=== PATIENT | female | born 1960 | race Caucasian/White ===

== ENCOUNTER 2016-07-13 22:14 | Inpatient (IN) | payer BC, OTHER ==
[2016-07-13] MEDS ORDERED: Aspirin Low Dose CHEW TAB* 81 MG PO ONE (22:32)
--- NOTE | 2016-07-13 22:51 | ED ---
Zoe Cummings Erika, scribed for Teja Cehn MD on 07/13/16 at 2231 . Shortness of Breath - HPI Summary HPI Summary: Patient is a 56-year-old female presenting to the ED with a CC of SOB. Patient reports that 2 weeks ago, she developed sudden-onset SOB while on a walk. At that time, she also noted chest pressure, which she believed to be due to indigestion. Since then, pt has had increased SOB with exertion - pt has to take breaks while on walks, which she has never had to do before. For the past 2 days, patient has also noticed a constriction feeling at the base of her throat with these episodes, and states SOB has been worsening. Pt called her [id number], a manager of training and development, who recommended she come to the ED tonight. Pt reports she was unable to have an appointment with her PCP until 07/15/2016. Hx elevated cholesterol without medication. Denies Hx HTN, diabetes. FHx NC. Patient lives with her , and does not smoke. - History of Current Complaint Chief Complaint: EDShortnessOfBreath Time Seen by Provider: 07/13/16 22:21 Hx Obtained From: Patient, Family/Public Health Sanitarian Technician - Onset/Duration: Sudden Onset, Lasting Weeks, Still Present Timing: Intermittent Episodes Lasting: - minutes Current Severity: None Dyspnea At: Exertion - Allergy/Home Medications Allergies/Adverse Reactions: Allergies Allergy/AdvReac Type Severity Reaction Status Date / Time No Known Allergies Allergy Verified 07/14/15 16:11 PMH/Surg Hx/FS Hx/Imm Hx Endocrine/Hematology History: Denies: Hx Diabetes Cardiovascular History: Reports: Hx Hypercholesterolemia - without medication Denies: Hx Hypertension Musculoskeletal History: Reports: Hx Osteoporosis - LEFT WRIST, Other Musculoskeletal History - chronic muscular pain left side of neck, shoulder and upper back Denies: Hx Rheumatoid Arthritis Sensory History: Reports: Hx Contacts or Glasses Opthamlomology History: Reports: Hx Contacts or Glasses Infectious Disease History: No Infectious Disease History: Reports: Hx Shingles Denies: History Other Infectious Disease, Traveled Outside the [place] in Last 30 Days - Family History Known Family History: Positive: Cardiac Disease - Social History Occupation: Employed Full-time Lives: With Family Alcohol Use: None Substance Use Type: Reports: None Hx Tobacco Use: Yes Smoking Status (MU): Former Smoker Type: Cigarettes Have You Smoked in the Last Year: No Review of Systems ENT: Other - constricting feeling in throat Positive: Shortness Of Breath All Other Systems Reviewed And Are Negative: Yes Physical Exam Triage Information Reviewed: Yes Vital Signs On Initial Exam: Initial Vitals Temp Pulse Resp BP Pulse Ox 97.9 F 72 16 125/71 98 07/13/16 22:15 07/13/16 22:15 07/13/16 22:15 07/13/16 22:15 07/13/16 22:15 Vital Signs Reviewed: Yes Appearance: Positive: No Pain Distress, Thin Skin: Positive: Warm Eyes: Positive: EOMI, ALEXSANDER ENT: Positive: Hearing grossly normal Neck: Positive: Supple Respiratory/Lung Sounds: Positive: Clear to Auscultation, Breath Sounds Present Cardiovascular: Positive: RRR. Negative: Murmur Abdomen Description: Positive: Nontender, Soft Musculoskeletal: Positive: Strength/ROM Intact. Negative: Edema Left, Edema Right Neurological: Positive: Sensory/Motor Intact, Alert, Oriented to Person Place, Time Psychiatric: Positive: Affect/Mood Appropriate Diagnostics - Vital Signs Vital Signs Temp Pulse Resp BP Pulse Ox 07/13/16 22:15 97.9 F 72 16 125/71 98 - Laboratory Result Diagrams: 07/14/16 04:16 07/14/16 04:16 Lab Statement: Any lab studies that have been ordered have been reviewed, and results considered in the medical decision making process. - Radiology CXR Xray Interpretation: No Acute Changes Radiology Interpretation Completed By: ED Physician - EKG 22:17 Cardiac Rate: NL - at 64 bpm EKG Rhythm: Sinus Rhythm EKG Interpretation: Non-specific T abnormalities EKG Comparison: Other - No prior EKG available for comparison Re-Evaluation - Re-Evaluation First Eval Re-Evaluation Time: 23:53 Comment: Discussed lab work, EKG, and CXR results. Discussed need for admission. Patient agrees with plan Course/Dx - Course Assessment/Plan: A 56 y/o F presents to the ED with a CC of SOB. Patient reported an episode of chest pressure 2 weeks ago, after which the SOB episodes began. FHx is significant for NC. EKG shows NSR with non-specific T abnormalities, and no prior for comparison. CXR shows no acute cardiopulmonary disease. Troponin is 0.03. Patient is admitted to Dr. Valentino for further work up and management. - Diagnoses Provider Diagnoses: ACS (acute coronary syndrome) - Physician Notifications Discussed Care of Patient With: Dr. Valentino (hospitalist) at 22:35 - agrees to admit Instructed by Provider To: Admit As Inpatient Discharge - Discharge Plan Condition: Stable Disposition: ADMITTED TO [facility] The documentation as recorded by the Zoe cannon Erika accurately reflects the service I personally performed and the decisions made by , Teja Chen MD.
[2016-07-13 23:11] LABS: Hematocrit 39 % (35-47); Hemoglobin 13.5 g/dl (12.0-16.0); Mean Corpuscular HGB Conc 35 g/dl (31-36); Mean Corpuscular Hemoglobin 30 pg (27-31); Mean Corpuscular Volume 86 fL (80-97); Mean Platelet Volume 8 um3 (7.4-10.4); Red Blood Count 4.56 10^6/ul (4.0-5.4); Red Cell Distribution Width 13 % (10.5-15); White Blood Count 5.9 10^3/ul (3.5-10.8)
[2016-07-13 23:16] LABS: BUN/Creatinine Ratio 22.1 (8-20); Calcium 9.1 mg/dL (8.6-10.3); EGFR African American 87.2 (>60); EGFR Non-African American 67.8 (>60); Globulin 2.9 g/dL (2-4); Total Bilirubin 0.5 mg/dL (0.2-1.0); Total Protein 6.9 g/dL (6.4-8.9)
[2016-07-13 23:18] LABS: Troponin I 0.03 ng/mL (<0.04)
[2016-07-13 23:19] LABS: Potassium 3.7 mmol/L (3.5-5.0)
--- NOTE | 2016-07-14 03:24 | HP ---
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 It was made worse with exertion and associated with a tight sensation in the throat , but no SOB, nausea, palpitations, or light-headedness. Since then the epigastric discomfort has subsided, but she continues to get throat tightness and now SOB with exertion until last PM when it came on at rest prompting her to call her son who is about to graduate medical school in [place]. He, his roommate, and another relative who is a agricultural commodities inspector all advised her to come to the ED for evaluation to which she finally agreed. Work up is notable for stable vitals & normal labs. ECG is concerning for Q- waves in II/III/AVF. PMedHx anxiety insomnia Allergies No Known Allergies Allergy (Verified 07/14/15 16:11) Ambulatory Orders Prozac* 40 mg PO DAILY 01/22/13 Vitamin D 2,000 i.u. PO DAILY 01/22/13 traZODone TAB* 50 mg PO BEDTIME PRN 01/22/13 Ibuprofen 200 mg PO DAILY PRN 08/11/13 PSurgHx denies SocHx: former smoker quit ~30years ago, no alcohol or recreational drugs; , lives with her ; retired nurse from [employer]; full code status FamHx: positive for HTN, HLD, CAD ROS: as above, otherwise reviewed and all were negative Constitutional: NAD, normally developed, well-nourished white female vitals: Vital Signs Temp 36.6 C 07/13/16 22:35 Pulse 75 07/14/16 04:00 Resp 24 07/14/16 04:00 BP 94/58 07/14/16 04:00 Pulse Ox 94 07/14/16 04:00 Intake & Output 07/13/16 07/13/16 07/14/16 11:59 23:59 11:59 Weight 65.771 kg HEENM: atraumatic; sclera/conjunctiva: non-icteric/clear; hearing: clinically intact; oropharynx: clear, mucosa moist Neck: soft tissue: non-tender; thyroid: normal Pulmonary: clear to auscultation bilaterally, good aeration, no accessory muscle use CV: RR/RR, normal S1S2, no carotid bruit, no jugular venous distention, 2+ B DP/ PT, no edema Abdominal: soft, non-distended, non-tender, no rebound/guarding/rigidity, normoactive bowel sounds, no hepatosplenomegaly or masses, no costovertebral angle tenderness Musculoskeletal: general: grossly intact; gait: stable Integumental: normal appearance and texture of exposed skin Psychiatric orientation: AA&O to PPS affect: calm mood: cooperative eye contact: good content: reliable responses: timely insight: good Testing: Lab Results 07/13/16 07/13/16 07/13/16 Range/Units 22:47 22:47 22:47 WBC 5.9 (3.5-10.8) 10^3/ul RBC 4.56 (4.0-5.4) 10^6/ul Hgb 13.5 (12.0-16.0) g/dl Hct 39 (35-47) % MCV 86 (80-97) fL MCH 30 (27-31) pg MCHC 35 (31-36) g/dl RDW 13 (10.5-15) % Plt Count 201 (150-450) 10^3/ul MPV 8 (7.4-10.4) um3 Neut % (Auto) 54.7 (38-83) % Lymph % (Auto) 29.8 (25-47) % Shelby % (Auto) 9.0 (1-9) % Eos % (Auto) 5.3 (0-6) % Baso % (Auto) 1.2 (0-2) % Absolute Neuts (auto) 3.2 (1.5-7.7) 10^3/ul Absolute Lymphs (auto) 1.8 (1.0-4.8) 10^3/ul Absolute Monos (auto) 0.5 (0-0.8) 10^3/ul Absolute Eos (auto) 0.3 (0-0.6) 10^3/ul Absolute Basos (auto) 0.1 (0-0.2) 10^3/ul Absolute Nucleated RBC 0 10^3/ul Nucleated RBC % 0 INR (Anticoag Therapy) 0.91 (0.89-1.11) Sodium 133 (133-145) mmol/L Potassium 3.7 (3.5-5.0) mmol/L Chloride 101 (101-111) mmol/L Carbon Dioxide 27 (22-32) mmol/L Anion Gap 5 (2-11) mmol/L BUN 19 (6-24) mg/dL Creatinine 0.86 (0.51-0.95) mg/dL Est GFR ( Amer) 87.2 (>60) Est GFR (Non-Af Amer) 67.8 (>60) BUN/Creatinine Ratio 22.1 H (8-20) Glucose 121 H (70-100) mg/dL Lactic Acid (0.5-2.0) mmol/L Calcium 9.1 (8.6-10.3) mg/dL Magnesium 2.0 (1.9-2.7) mg/dL Total Bilirubin 0.50 (0.2-1.0) mg/dL AST 22 (13-39) U/L ALT 17 (7-52) U/L Alkaline Phosphatase 52 (34-104) U/L Troponin I 0.03 (<0.04) ng/mL B-Natriuretic Peptide ( - 100) pg/mL Total Protein 6.9 (6.4-8.9) g/dL Albumin 4.0 (3.2-5.2) g/dL Globulin 2.9 (2-4) g/dL Albumin/Globulin Ratio 1.4 (1-3) 07/13/16 07/13/16 Range/Units 22:47 22:47 WBC (3.5-10.8) 10^3/ul RBC (4.0-5.4) 10^6/ul Hgb (12.0-16.0) g/dl Hct (35-47) % MCV (80-97) fL MCH (27-31) pg MCHC (31-36) g/dl RDW (10.5-15) % Plt Count (150-450) 10^3/ul MPV (7.4-10.4) um3 Neut % (Auto) (38-83) % Lymph % (Auto) (25-47) % Shelby % (Auto) (1-9) % Eos % (Auto) (0-6) % Baso % (Auto) (0-2) % Absolute Neuts (auto) (1.5-7.7) 10^3/ul Absolute Lymphs (auto) (1.0-4.8) 10^3/ul Absolute Monos (auto) (0-0.8) 10^3/ul Absolute Eos (auto) (0-0.6) 10^3/ul Absolute Basos (auto) (0-0.2) 10^3/ul Absolute Nucleated RBC 10^3/ul Nucleated RBC % INR (Anticoag Therapy) (0.89-1.11) Sodium (133-145) mmol/L Potassium (3.5-5.0) mmol/L Chloride (101-111) mmol/L Carbon Dioxide (22-32) mmol/L Anion Gap (2-11) mmol/L BUN (6-24) mg/dL Creatinine (0.51-0.95) mg/dL Est GFR ( Amer) (>60) Est GFR (Non-Af Amer) (>60) BUN/Creatinine Ratio (8-20) Glucose (70-100) mg/dL Lactic Acid 0.7 (0.5-2.0) mmol/L Calcium (8.6-10.3) mg/dL Magnesium (1.9-2.7) mg/dL Total Bilirubin (0.2-1.0) mg/dL AST (13-39) U/L ALT (7-52) U/L Alkaline Phosphatase (34-104) U/L Troponin I (<0.04) ng/mL B-Natriuretic Peptide 35 ( - 100) pg/mL Total Protein (6.4-8.9) g/dL Albumin (3.2-5.2) g/dL Globulin (2-4) g/dL Albumin/Globulin Ratio (1-3) ECG, personally reviewed: NSR rate 64, subtle ST depression V3-5, Q-waves & T- wave abnormalities in II/III/AVF CXR, personally reviewed: no acute process Impression: 56F presenting with compelling evidence of unstable angina, possible recent NSTEMI DIAGNOSIS & PLAN Primary unstable angina : aspirin : metoprolol : heparin GTT : trend troponin : supplemental oxygen : telemetry : check ECHO : consider cardiology consult pending above results : supportive care Secondary anxiety : continue fluoxetine insomnia : continue trazodone Admission Rational: observation for unstable angina DVTp: heparin GTT Code Status: full HCP:
[2016-07-14] MEDS ORDERED: Morphine INJ* 2 MG/ML 1 ML SYRINGE IV PRN (03:51)
[2016-07-14] MEDS ORDERED: Acetaminophen TAB* 325 MG PO PRN (03:51)
[2016-07-14] MEDS ORDERED: Ondansetron INJ* 2 MG/ML VIAL IV PRN (03:51)
[2016-07-14] MEDS ORDERED: Melatonin (NF) 3 MG TAB PO PRN (03:51)
[2016-07-14] MEDS ORDERED: Heparin DRIP 25,000 UNITS(*) 25,000 UNITS/500 ML BAG IVPB SCH (04:00)
[2016-07-14] MEDS ORDERED: Heparin VIAL(*) 5000 UNITS/ML VIAL (FIVE THOUSAND) IV SCH (04:00)
[2016-07-14] MEDS: Metoprolol Succinate XL TAB* 25 MG PO SCH ×2 (04:31→08:14)
[2016-07-14 04:53] LABS: Hematocrit 39 % (35-47); Hemoglobin 13.3 g/dl (12.0-16.0); Mean Corpuscular HGB Conc 35 g/dl (31-36); Mean Corpuscular Hemoglobin 30 pg (27-31); Mean Corpuscular Volume 85 fL (80-97); Mean Platelet Volume 9 um3 (7.4-10.4); Red Blood Count 4.51 10^6/ul (4.0-5.4); Red Cell Distribution Width 13 % (10.5-15); White Blood Count 5.4 10^3/ul (3.5-10.8)
[2016-07-14 05:07] LABS: Troponin I 0.03 ng/mL (<0.04)
--- NOTE | 2016-07-14 07:48 | RAD ---
INDICATION: Chest pressure COMPARISON: Chest x-ray dated February 20, 2003 TECHNIQUE: PA and lateral views of the chest were obtained. FINDINGS: The heart and mediastinum are normal in size and contour. The lungs are grossly clear. There is no evidence of large pleural effusion. Visualized bones are normal for the patient's age. There is no radiographic evidence of free air beneath the diaphragm IMPRESSION: No radiographic evidence of acute cardiopulmonary disease.
[2016-07-14] MEDS: Docusate CAP* 100 MG PO SCH ×2 (08:13→21:35)
[2016-07-14] MEDS: Pantoprazole IV* 40 MG IV SCH (08:14)
[2016-07-14] MEDS ORDERED: Aspirin TAB* 325 MG PO SCH ×2 (09:00→13:44)
--- NOTE | 2016-07-14 10:54 | ECHO ---
Patient: JIM SNYDER [facility] Rec#: [id number] : 1960 Date: 07/14/2016 Age: 56y Height: 165.1 cm / 65.0 in Weight: 65.77 kg / 145.0 lbs Sex: F BSA: 1.72 Room#: [facility] Admit Date#: 07/14/2016 Type: Inpatient Referring: Alexey Valentino MD Reading: Sisi Ray MD Cow Buyer: Jaleel Leonardo RDCS Transthoracic Echocardiogram Indication: Unstable angina BP: 106/62 Rhythm: NSR Findings History: Former smoker Technical Comments: The study quality is fair. The study is technically limited due to patient body habitus. Left Ventricle: The left ventricular chamber size is normal. Global left ventricular wall motion and contractility are within normal limits.The base of the inferior-posterior wall is relatively hypokinetic on long axis and 2 chamber views. There is normal left ventricular systolic function. The estimated ejection fraction is 55-60%. There is no consistent Doppler evidence of clinically significant diastolic dysfunction. Left Atrium: The left atrial chamber size is normal. Right Ventricle: The right ventricular cavity size is normal. The right ventricular global systolic function is normal. Right Atrium: The right atrial cavity size is normal. Aortic Valve: The aortic valve is trileaflet. There is a trace of aortic regurgitation. There is no evidence of aortic stenosis. Mitral Valve: The mitral valve leaflets appear normal. There is no evidence of mitral regurgitation. There is no evidence of mitral stenosis. Tricuspid Valve: There is trace tricuspid regurgitation. Pulmonic Valve: The pulmonic valve structure is not well visualized. Pericardium: There is no pericardial effusion. Aorta: There is no dilatation of the ascending aorta. There is no dilatation of the aortic arch. There is no dilation of the aortic root. Pulmonary Artery: The main pulmonary artery is not well visualized. Venous: The inferior vena cava appears normal in size. There is a greater than 50% respiratory change in the inferior vena cava dimension. Conclusions Global left ventricular wall motion and contractility are within normal limits.The base of the inferior-posterior wall is relatively hypokinetic on long axis and 2 chamber views. The estimated ejection fraction is 55-60%. The right ventricular global systolic function is normal, wall thickness appears increased visually. All valves show good function. There is a trace of aortic regurgitation. There is trace tricuspid regurgitation. Fair quality study, body habitus impacting on image quality. No prior echo to compare. Measurements Name Value Normal Range RVIDd (AP) 2D 1.8 cm (0.9 - 2.6) RVDdMajor (2D) 2.6 cm (2.2 - 4.4) IVSd (2D) 1.1 cm (0.6 - 1) LVPWd (2D) 0.7 cm (0.6 - 1) LVIDd (2D) 3.8 cm (3.6 - 5.4) LVIDs (2D) 2.6 cm - LV FS (2D) 32 % (25 - 45) Aortic Annulus 2 cm (1.4 - 2.6) Ao root diameter (2D) 2.8 cm (2.1 - 3.5) Ascending Ao 2.3 cm (2.1 - 3.4) Aortic arch 1.9 cm (1.8 - 3.4) LA dimension (AP) 2D 2 cm (2.3 - 3.8) LAd ISD 4CH 4.6 cm (2.9 - 5.3) Name Value Normal Range LA ESV SP 4CH (A/L) 30 ml - LA ESV SP 2CH (A/L) 17 ml - LA ESV BP (A/L) 26 ml - LA ESV BP (A/L) index 15.17 ml/m2 - LA ESV SP 4CH (MOD) 28 ml - LA ESV SP 2CH (MOD) 18 ml - Name Value Normal Range MV E-wave Vmax 0.64 m/sec - MV deceleration time 219 msec - MV A-wave Vmax 0.72 m/sec - MV E:A ratio 0.9 ratio - LV septal e' Vmax 0.06 m/sec - LV lateral e' Vmax 0.1 m/sec - LV E:e' septal ratio 10.6 ratio - LV E:e' lateral ratio 6.4 ratio - Name Value Normal Range LVOT diameter 12.9 cm - LVOT Vmax 1 m/sec - Name Value Normal Range TR Vmax 2.1 m/sec - TR peak gradient 17 mmHg - RAP 3 mmHg - RVSP 20 mmHg - IVC diameter 0.97 cm -
--- NOTE | 2016-07-14 13:02 | RAD ---
INDICATION: Chest pain COMPARISON: None TECHNIQUE: Rest images were acquired following the intravenous injection of 10.5 millicuries of technetium 99m tetrofosmin. The patient was experiencing unstable angina and there are EKG changes resulting in termination of the examination. There are rest images that were submitted. FINDINGS: Tomographic and bull's-eye images show an inferoseptal defect. IMPRESSION: INCOMPLETE EXAMINATION SHOWING INFEROSEPTAL DEFECT. THE PATIENT WAS TAKEN IMMEDIATELY TO THE [facility].
[2016-07-14] MEDS ORDERED: Aspirin Low Dose CHEW TAB* 81 MG PO ONE (13:40)
[2016-07-14] MEDS ORDERED: diPHENhydraMINE PO* 25 MG PO SCH (13:40)
[2016-07-14] MEDS ORDERED: Diazepam TAB(*) 5 MG PO SCH (13:40)
--- NOTE | 2016-07-14 15:55 | PN ---
Subjective Date of Service: 07/14/16 Interval History: Patient seen afternoon. Reports no recurrence in symptoms. Understands results of echo and nuclear imaging. Spoke with Dr. Rm with plan for cath in AM. Family History: Unchanged from Admission Social History: Unchanged from Admission Past Medical History: Unchanged from Admission Objective Active Medications: Acetaminophen (Tylenol Tab*) 650 mg PO Q6H PRN Aspirin (Aspirin Tab*) 81 mg PO DAILY HENRY Diazepam (Valium Tab(*)) 5 mg PO ONCALL HENRY Diphenhydramine HCl (Benadryl Po*) 25 mg PO ONCALL HENRY Docusate Sodium (Colace Cap*) 200 mg PO BID HENRY Heparin Sodium (Porcine) (Heparin Vial(*)) 0 units IV .PER PROTOCOL HENRY Heparin Sodium/Dextrose (Heparin Drip 25,000 Units(*)) 25,000 units in 500 mls @ 0 mls/hr IVPB .(INITIAL RATE) HENRY; Per Protocol Sodium Chloride (Ns 0.9% 1000 Ml*) 1,000 mls @ 75 mls/hr IV PER RATE HENRY Sodium Chloride (Ns 0.9% 1000 Ml*) 1,000 mls @ 100 mls/hr IV .per rate HENRY Melatonin (Melatonin (Nf)) 3 mg PO BEDTIME PRN; Protocol Metoprolol Succinate (Toprol Xl Tab*) 12.5 mg PO DAILY HENRY Morphine Sulfate (Morphine Inj (Syringe)*) 2 mg IV Q4H PRN Ondansetron HCl (Zofran Inj*) 4 mg IV Q6H PRN Pantoprazole Sodium (Protonix Iv*) 40 mg IV DAILY HENRY Trazodone HCl (Desyrel Tab*) 25 mg PO BEDTIME HENRY Trazodone HCl (Desyrel Tab*) 25 mg PO BEDTIME PRN PRN Reason: INSOMNIA Vital Signs 07/14/16 14:27 Respiratory 16 Rate Oxygen Devices in Use Now: None Appearance: Middle-aged, F, laying in bed in NAD Eyes: No Scleral Icterus Ears/Nose/Mouth/Throat: Mucous Membranes Moist Neck: NL Appearance and Movements; NL JVP Respiratory: Symmetrical Chest Expansion and Respiratory Effort, Clear to Auscultation Cardiovascular: NL Sounds; No Murmurs; No JVD, RRR Abdominal: NL Sounds; No Tenderness; No Distention Lymphatic: No Cervical Adenopathy Extremities: No Edema Skin: No Rash or Ulcers Neurological: Alert and Oriented x 3 Result Diagrams: 07/14/16 04:16 07/14/16 04:16 Assess/Plan/Problems-Billing Assessment: Unstable angina in a 56 yo F with hx of anxiety, insomnia - Patient Problems (1) Unstable angina Current Visit: Yes Comment: Appreciate cardiology assistance. Echo shows WMA and nuclear stress test with inferoseptal defect. Continue heparin, beta-yoana , ASA. Lipid panel in AM. Dr. Rm to take patient to label stamper in AM. (2) DVT prophylaxis Current Visit: Yes Comment: Heparin
[2016-07-14] MEDS ORDERED: Nitroglycerin TAB 0.4 MG* 0.4 MG TAB ONE (20:18)
[2016-07-14] MEDS: NS 0.9% 1000 ML* 1,000 ML IV SCH ×2 (20:25→21:48)
[2016-07-14] MEDS ORDERED: NS 0.9% 1000 ML* 250 ML IV SCH (20:25)
--- NOTE | 2016-07-14 20:31 | PN ---
Progress Note - Progress Note Note: Nursing reports onset of mild throat tightness & SOB upon ambulation to restroom. Time of onset per was ~1850. I was notified at ~1800 and was at the bedside ~1810. She continues to have steady mild discomfort and SOB, but appears in no objective distress. She denies nausea, sweats, palpitations, radiation, and light-headedness. ECG: flattening of the anterior T-waves vitals: pressures soft, systolic 95-105 general: WNWD white female, mildly anxious appearing, but in no objective distress lung: CTAB, normal effort CV: RRR, normal S1S2 abdomen: SNTND integument: W&D assessment: plan unstable angina : case/changes reviewed w/ P MD Jag interventional cardiology who recommends : 250cc NS bolus : transfer to ICU : initiation of low dose nitroGTT : troponin now & midnight : recheck ECG at midnight
[2016-07-14] MEDS ORDERED: Atorvastatin* 40 MG TAB PO SCH (21:00)
[2016-07-14] MEDS ORDERED: nitroGLYCERIN DRIP* 250 ML IV SCH (21:00)
[2016-07-14] MEDS: traZODone TAB* 50 MG TAB PO SCH (21:35)
[2016-07-14] MEDS ORDERED: Ticagrelor* 90 MG TAB PO ONE ×2 (22:25→22:29)
--- NOTE | 2016-07-14 23:30 | CONS ---
CARDIOLOGY CONSULTATION: DATE OF CONSULT: 07/14/16 REASON FOR CONSULT: The indication for the consultation with abnormal exercise stress test with a history of symptoms suggesting progressive unstable angina. HISTORY OF PRESENT ILLNESS: The patient is a pleasant 56-year-old female with no prior known cardiac history. Specifically, she denies any history of myocardial infarction, congestive heart failure, or significant heart rhythm disturbance. The patient was in her usual status of health until the past 2 weeks when she noted that she started getting an epigastric discomfort that occurred with exertion. The first episode seemed to last a prolonged period of time, but since that time to now she has had the epigastric symptom with exertion progressing to throat discomfort. She states that now with the throat tightness, she will get short of breath with exertion and had an episode of this on the evening of admission and called her son who is in graduate school in [place] who recommended that she seek medical attention by going to the emergency room. In the emergency room, initial troponin was 0.03. She was given aspirin therapy and her symptoms seemed to dissipate. She was placed on IV heparin and a repeat troponin was found to be 0.03 with no change. The initial EKG in the emergency room dated 07/13/16, time 2217, revealed a T-wave inversion in lead 3 and a subtle biphasic T-wave in aVF and a somewhat flatter T -wave in lead 2 with nonspecific slight flattening in the ST segments in 1, aVL and V6. She underwent exercise nuclear stress test during which time she developed ST segment depression and recurrent throat discomfort. Her heart rate did not reach target heart rate, but even at this lower range she was noted to have ST segment changes persist into late recovery. Her symptoms dissipated during recovery. As such, we were asked to see her for evaluation of the cardiac status. Cardiac risk factors include a history of hyperlipidemia, hypertension. She has a remote history of smoking, but nothing within the past 30 years. She has a family history of a brother with multiple stents and she does not have diabetes. PAST MEDICAL HISTORY: Includes hyperlipidemia and hypertension and also anxiety and insomnia. PAST SURGICAL HISTORY: None. MEDICATIONS: As an outpatient included: 1. Prozac 40 mg daily. 2. Vitamin D 2000 international units daily. 3. Trazodone tablets 50 mg at bedtime p.r.n. 4. Ibuprofen 20 mg p.o. daily p.r.n. ALLERGIES: No known allergies. SOCIAL HISTORY: She does not abuse alcohol or recreational drugs. REVIEW OF SYSTEMS: As per the H and P with no additional findings. PHYSICAL EXAM: When I see her reveals blood pressure 103/62, pulse 60, 98.2 temperature, respirations 16. Neck is supple. There is no increased JVP. Carotid has good upstroke and volume without bruits. Conjunctivae are pink. Sclerae clear. Lungs reveal no accessory muscle usage. There is good excursion. Lungs are clear to A and P. Heart reveals no visible heaves. No palpable heaves or thrills. Normal S1 and S2 with no S3, S4 or gallop. No significant systolic or diastolic murmur appreciated. Abdomen is soft and nontender without organomegaly. Extremities are without clubbing, cyanosis, or tere pitting edema. Peripheral pulses are intact. Femoral pulses noted without bruits. Neuro: The patient is alert and oriented with normal mentation. Musculoskeletal: The patient with normal gait. Psychiatric: The patient with normal affect. DIAGNOSTIC STUDIES/LAB DATA: Blood work reveals sodium 133, potassium 3.7, chloride 101, bicarb 27, BUN and creatinine of 19 and 0.8. Hemoglobin and hematocrit of 13.3 and 39 with a platelet count of 190,000. White count 5400. Chest x-ray report reveals no acute cardiopulmonary disease. A transthoracic echocardiogram had showed normal left ventricular chamber in size with the base of the inferior posterior wall relatively hypokinetic on the long axis in 2 chamber view. Overall, normal systolic function, EF of 55% to 60%. No significant valvular disease. OVERALL ASSESSMENT: Ms. Clarke presents now with symptoms suggestive of progressive angina pectoris with an EKG that in retrospect shows small Q waves in the inferior leads with well-preserved R waves suggesting an incomplete inferior wall myocardial infarction. At this point in time, I would recommend cardiac catheterization with an eye toward potential revascularization depending on the findings, which most likely will be either a critically stenosed right coronary artery or left dominant circumflex or a totally occluded right coronary artery with poor collaterals. For now, the patient will be maintained on heparin and aspirin therapy and beta-yoana therapy with cardiac catheterization plan for first thing in the morning. Further management will be made pending the results of the cardiac catheterization. The risks and benefits of the cardiac catheterization were explained. She understood them and wished to proceed. We will also order atorvastatin to be started at 40 mg daily. CC: Dr. Gallagher, [facility]* [id number]/[facility] #: [id number] MTDD
[2016-07-15] MEDS: traZODone TAB* 50 MG TAB PO PRN ×2 (00:08→21:45)
[2016-07-15 05:55] LABS: Hematocrit 38 % (35-47); Hemoglobin 13.1 g/dl (12.0-16.0); Mean Corpuscular HGB Conc 34 g/dl (31-36); Mean Corpuscular Hemoglobin 30 pg (27-31); Mean Corpuscular Volume 86 fL (80-97); Mean Platelet Volume 8 um3 (7.4-10.4); Red Blood Count 4.42 10^6/ul (4.0-5.4); Red Cell Distribution Width 14 % (10.5-15); White Blood Count 4.7 10^3/ul (3.5-10.8)
[2016-07-15] MEDS ORDERED: NS 0.9% 1000 ML* 1,000 ML IV SCH ×2 (06:00→08:45)
[2016-07-15 06:06] LABS: HDL Cholesterol 42.8 mg/dL
[2016-07-15 06:09] LABS: Troponin I 0.02 ng/mL (<0.04)
[2016-07-15] MEDS ORDERED: Lidocaine 1% INJ* 10 MG/ML 30 ML SDV ONE (07:23)
[2016-07-15] MEDS ORDERED: Midazolam* 1 MG/ML 5 ML VIAL (5 MG) ONE (07:23)
[2016-07-15] MEDS ORDERED: fentaNYL* 50 MCG/ML 2 ML VIAL (100 MCG VIAL) ONE (07:23)
[2016-07-15] MEDS ORDERED: Iohexol 350 (CONTRAST) 200 ML MDV IV ONE (07:23)
[2016-07-15] MEDS ORDERED: nitroGLYCERIN DRIP* 250 ML ONE (07:23)
[2016-07-15] MEDS ORDERED: Heparin 2 UNITS/ML IVPREMIX* 3,000 ML IV ONE (07:23)
[2016-07-15] MEDS ORDERED: Heparin(*) 1000 UNIT/ML 10 ML VIAL CATH LAB IV ONE (07:26)
[2016-07-15] MEDS ORDERED: VERAPAMIL 2.5 MG/ML 4 ML VIAL ONE (07:26)
[2016-07-15] MEDS ORDERED: Bivalirudin(*) 250 MG VIAL ONE (08:14)
[2016-07-15] MEDS ORDERED: Nitroglycerin TAB 0.4 MG* 0.4 MG TAB SL PRN (08:41)
[2016-07-15] MEDS ORDERED: Docusate CAP* 100 MG PO PRN (08:41)
[2016-07-15] MEDS ORDERED: oxyCODONE/Acetamin 5/325 MG* TAB PO PRN (08:41)
[2016-07-15] MEDS ORDERED: Zolpidem TAB* 5 MG PO PRN (08:41)
[2016-07-15] MEDS ORDERED: FLUoxetine CAP* 20 MG PO ONE (10:23)
[2016-07-15] MEDS: Metoprolol Succinate XL TAB* 25 MG PO SCH (10:41)
[2016-07-15] MEDS: Aspirin Low Dose CHEW TAB* 81 MG PO SCH (10:41)
[2016-07-15] MEDS: Ticagrelor* 90 MG TAB PO SCH ×2 (10:42→21:43)
[2016-07-15] MEDS: Pantoprazole IV* 40 MG IV SCH (10:42)
[2016-07-15] MEDS: Docusate CAP* 100 MG PO SCH ×2 (10:44→21:42)
[2016-07-15] MEDS: Acetaminophen TAB* 325 MG PO PRN ×2 (11:10→18:44)
--- NOTE | 2016-07-15 14:07 | PN ---
Subjective Date of Service: 07/15/16 Interval History: ON events noted. Patient seen after AM cath. Reports feeling well at this time other than some soreness in the groin. No chest/jaw discomfort. No dizziness or lightheadedness. Eating lunch. Family History: Unchanged from Admission Social History: Unchanged from Admission Past Medical History: Unchanged from Admission Objective Active Medications: Acetaminophen (Tylenol Tab*) 650 mg PO Q6H PRN Acetaminophen (Tylenol Tab*) 650 mg PO Q4H PRN Aspirin (Aspirin Low Dose Tab*) 81 mg PO DAILY [facility] Atorvastatin Calcium (Lipitor*) 80 mg PO DAILY@2100 [facility] Docusate Sodium (Colace Cap*) 200 mg PO BID [facility] Docusate Sodium (Colace Cap*) 100 mg PO DAILY PRN Fluoxetine HCl (Prozac Cap*) 40 mg PO BEDTIME [facility] Sodium Chloride (Ns 0.9% 1000 Ml*) 1,000 mls @ 100 mls/hr IV .per rate [facility] Sodium Chloride (Ns 0.9% 1000 Ml*) 250 mls @ 1,000 mls/hr IV WIDE OPEN [facility] Nitroglycerin/Dextrose (Nitroglycerin Drip*) 250 mls @ 1.2 mls/hr IV .(Initial Rate) [facility] Sodium Chloride (Ns 0.9% 1000 Ml*) 1,000 mls @ 100 mls/hr IV .per rate [facility] Melatonin (Melatonin (Nf)) 3 mg PO BEDTIME PRN; Protocol Metoprolol Succinate (Toprol Xl Tab*) 12.5 mg PO DAILY [facility] Morphine Sulfate (Morphine Inj (Syringe)*) 2 mg IV Q4H PRN Nitroglycerin (Nitroglycerin Tab 0.4 Mg*) 0.4 mg SL Q5M PRN Ondansetron HCl (Zofran Inj*) 4 mg IV Q6H PRN Oxycodone/Acetaminophen (Percocet 5/325 Tab*) 1 tab PO Q6H PRN Ticagrelor (Brilinta*) 90 mg PO BID [facility] Trazodone HCl (Desyrel Tab*) 25 mg PO BEDTIME [facility] Trazodone HCl (Desyrel Tab*) 25 mg PO BEDTIME PRN Zolpidem Tartrate (Ambien Tab*) 5 mg PO BEDTIME PRN Vital Signs 07/14/16 07/14/16 07/14/16 14:27 15:15 18:57 Temperature 98.5 F 98.1 F Pulse Rate 73 69 Respiratory 16 18 16 Rate Blood Pressure 97/51 91/55 (mmHg) O2 Sat by Pulse 97 97 Oximetry 07/15/16 07/15/16 07/15/16 06:00 06:30 07:00 Temperature Pulse Rate 63 57 55 Respiratory 19 14 14 Rate Blood Pressure 98/59 111/67 (mmHg) O2 Sat by Pulse 97 99 99 Oximetry 07/15/16 07/15/16 07/15/16 13:26 13:30 14:00 Temperature 98 F Pulse Rate 64 61 Respiratory 17 19 Rate Blood Pressure 97/68 (mmHg) O2 Sat by Pulse 96 97 Oximetry Oxygen Devices in Use Now: None Appearance: Middle-aged, F, laying in bed in NAD Eyes: No Scleral Icterus Ears/Nose/Mouth/Throat: Mucous Membranes Moist Neck: NL Appearance and Movements; NL JVP Respiratory: Symmetrical Chest Expansion and Respiratory Effort, Clear to Auscultation Cardiovascular: NL Sounds; No Murmurs; No JVD, RRR Abdominal: NL Sounds; No Tenderness; No Distention Lymphatic: No Cervical Adenopathy Extremities: No Edema Skin: - - R groin site looks stable Neurological: Alert and Oriented x 3 Result Diagrams: 07/15/16 05:30 07/14/16 04:16 Microbiology and Other Data: Microbiology 07/14/16 21:00 Nasal Screen MRSA (PCR)(RAMIRO) - Final Nasal Mrsa Negative Assess/Plan/Problems-Billing Assessment: Unstable angina in a 56 yo F with hx of anxiety, insomnia - Patient Problems (1) Unstable angina Current Visit: Yes Comment: CAD. Cath this AM showed 95% RCA stenosis now s/p KENY. Continue ASA, brilinta, lipitor, toprol XL. BPs on the low side, weaned off of Nitro gtt. (2) Depression Current Visit: Yes Comment: Continue home Prozac (3) DVT prophylaxis Current Visit: Yes Comment: Heparin
[2016-07-15] MEDS ORDERED: Atorvastatin* 80 MG TAB PO SCH (21:00)
[2016-07-15] MEDS ORDERED: Atorvastatin* 40 MG TAB PO SCH (21:00)
[2016-07-15] MEDS: traZODone TAB* 50 MG TAB PO SCH (21:42)
--- NOTE | 2016-07-15 23:23 | CATH ---
CARDIAC CATHETERIZATION AND INTERVENTIONAL REPORT: DATE OF PROCEDURE: 07/15/16 INDICATION FOR PROCEDURE: The patient with unstable angina, abnormal exercise stress test. PROCEDURE: Coronary arteriography, primary stenting of the mid right coronary artery, left heart catheterization, left ventriculography. DESCRIPTION OF PROCEDURE: The patient was interviewed and examined on the floor of the hospital, where the risks and benefits were explained. She understood them and wished to proceed. She was brought to the cardiovascular laboratory, where formal time-out was performed. The patient was prepped and draped in a sterile fashion. The right groin area was anesthetized with 1% lidocaine. The right femoral artery was cannulated using an anterior wall approach and a 6.5 curved sheath was placed. Coronary arteriography was performed using a 5-Faroese 4 Ce left coronary catheter and a 5-Faroese 4 Ce right coronary catheter. At that point in time, the patient's ACT was checked with her on heparin and was found to be subtherapeutic. A bolus of Angiomax was given and a Angiomax drip was started. The patient had already received her aspirin and had received Brilinta loading dose prior to coming to the lab. Guiding views were obtained utilizing a JR-4 6-Faroese guide catheter. An 0.014 regular length all Star wire was advanced down the right coronary artery and primary stenting was performed through the 3.0 x 16 mm long Synergy drug-eluting stent postdilated to 3.3 to 3.4 mm with high pressure balloon inflations. Following this, the artery was assessed both with the wire in place and wire removed. Following this, central aortic pressure was recorded using an angled pigtail catheter advanced to the ascending aorta. The catheter was then passed across the aortic valve into the left ventricle where left ventricular pressure was recorded. Left ventriculography was performed utilizing a total of 22 cc of Omnipaque dye at a rate of 11 cc per second. The catheter was pulled back across the aortic value after that to recheck gradient. At the end of the case , an injection was made into the right femoral sheath to access the eligibility to utilize closure device. It was found to be acceptable for this and as such , a 6/7 Faroese Mynx closure device was deployed with good hemostasis. The total contrast used was 120 cc of Omnipaque dye. The radiation exposure included 9.4 minutes of fluoro time. The air kerma radiation was 531 milligray. The DAPA radiation was 3164 microgray per meter squared. RESULTS: HEMODYNAMIC DATA: Left heart catheterization - central aortic pressure recorded at 107/71 with a mean of 86, left ventricular pressure of 110 over left ventricular end- diastolic pressure of 13. LEFT VENTRICULOGRAPHY: Performed in the EDMOND projection revealed mild/mild-to- moderate proximal inferior wall hypokinesis with preservation of the rest of the ventricle. The overall ejection fraction 55% to 60%, no significant mitral regurgitation was noted. CORONARY ARTERIOGRAPHY: A. Left coronary artery. 1. Left main - no significant lesion seen. 2. Left anterior descending artery. The left anterior descending artery traversed to the apical region. It supplied a high first and a second diagonal branch followed by a thin third and fourth diagonal branch. There was no significant stenosis seen throughout the course of the vessel. There was an area just after the first septal health safety and environment manager that appeared to have a mild muscle bridging noted, but no significant compression of the artery. 3. Circumflex artery - a nondominant vessel supplying a very thin trifurcation marginal branch, followed by a thin mid obtuse marginal branch and finally a moderate sized bifurcating mid-to-low obtuse marginal branch. There was minimal luminal irregularities of 15% seen in the proximal to mid portion of the circumflex. B. Right coronary artery - a dominant vessel with a critical 95% stenosis in its mid portion. Past this point, it supplied the posterior descending artery in several posterior left ventricular branches. No significant stenosis was seen past the mid lesion. INTERVENTION INTO MID RIGHT CORONARY ARTERY: Successful reduction of critical 95% stenosis with primary stenting utilizing a 3.0 x 16 mm long Synergy drug-eluting stent post dilated with a 3.25 noncompliant balloon until it obtained 3.3 to 3.4 mm at high pressures with EDSON-3 flow, no dissection seen, and 0% residual stenosis. OVERALL ASSESSMENT: Successful intervention into critically stenosed mid right coronary artery with primary stenting as described above. Aggressive cholesterol management and dual-antiplatelet therapy will be pursued. The patient is on low- dose beta-yoana and this will be continued for now. CC: Dr. Gallagher, [facility]* [id number]/[facility] #: [id number] MTDD
[2016-07-16] MEDS: Acetaminophen TAB* 325 MG PO PRN (03:41)
[2016-07-16 06:14] LABS: Hematocrit 38 % (35-47); Mean Corpuscular HGB Conc 34 g/dl (31-36); Mean Corpuscular Hemoglobin 29 pg (27-31); Mean Corpuscular Volume 86 fL (80-97); Mean Platelet Volume 8 um3 (7.4-10.4); Red Blood Count 4.42 10^6/ul (4.0-5.4); Red Cell Distribution Width 14 % (10.5-15); White Blood Count 5.8 10^3/ul (3.5-10.8)
[2016-07-16 06:25] LABS: Albumin 3.5 g/dL (3.2-5.2); BUN/Creatinine Ratio 15.4 (8-20); EGFR African American 120.4 (>60); EGFR Non-African American 93.6 (>60); Globulin 2.4 g/dL (2-4); Potassium 3.8 mmol/L (3.5-5.0); Total Bilirubin 1.1 mg/dL (0.2-1.0); Total Protein 5.9 g/dL (6.4-8.9)
[2016-07-16] MEDS: Ticagrelor* 90 MG TAB PO SCH (09:05)
[2016-07-16] MEDS: Aspirin Low Dose CHEW TAB* 81 MG PO SCH (09:05)
[2016-07-16] MEDS: Docusate CAP* 100 MG PO SCH (09:05)
--- NOTE | 2016-07-16 09:14 | PN ---
Subjective Date of Service: 07/16/16 Interval History: Patient seen this morning. No recurrence of symptoms. Had been ambulating around the unit last night with no issues. No light-headedness. Says BPs usually run in 90s-110s. Family History: Unchanged from Admission Social History: Unchanged from Admission Past Medical History: Unchanged from Admission Objective Active Medications: Acetaminophen (Tylenol Tab*) 650 mg PO Q6H PRN PRN Reason: FEVER/PAIN Acetaminophen (Tylenol Tab*) 650 mg PO Q4H PRN PRN Reason: HEADACHE/PAIN Last Admin: 07/16/16 03:41 Dose: 650 mg Aspirin (Aspirin Low Dose Tab*) 81 mg PO DAILY [facility] Last Admin: 07/16/16 09:05 Dose: 81 mg Atorvastatin Calcium (Lipitor*) 80 mg PO DAILY@2100 [facility] Last Admin: 07/15/16 21:42 Dose: 80 mg Docusate Sodium (Colace Cap*) 200 mg PO BID [facility] Last Admin: 07/16/16 09:05 Dose: 200 mg Docusate Sodium (Colace Cap*) 100 mg PO DAILY PRN PRN Reason: CONSTIPATION Fluoxetine HCl (Prozac Cap*) 40 mg PO BEDTIME [facility] Sodium Chloride (Ns 0.9% 1000 Ml*) 1,000 mls @ 100 mls/hr IV .per rate [facility] Sodium Chloride (Ns 0.9% 1000 Ml*) 250 mls @ 1,000 mls/hr IV WIDE OPEN [facility] Last Admin: 07/14/16 20:25 Dose: 1,000 mls/hr Nitroglycerin/Dextrose (Nitroglycerin Drip*) 250 mls @ 1.2 mls/hr IV .(Initial Rate) [facility] PRN Reason: 2 MCG/MIN Last Admin: 07/14/16 21:47 Dose: 3 mls/hr Sodium Chloride (Ns 0.9% 1000 Ml*) 1,000 mls @ 100 mls/hr IV .per rate [facility] Last Admin: 07/15/16 09:39 Dose: 100 mls/hr Melatonin (Melatonin (Nf)) 3 mg PO BEDTIME PRN; Protocol PRN Reason: Sleep Metoprolol Succinate (Toprol Xl Tab*) 12.5 mg PO DAILY [facility] Last Admin: 07/15/16 10:41 Dose: 12.5 mg Morphine Sulfate (Morphine Inj (Syringe)*) 2 mg IV Q4H PRN PRN Reason: PAIN - MILD Last Admin: 07/14/16 04:34 Dose: 2 mg Nitroglycerin (Nitroglycerin Tab 0.4 Mg*) 0.4 mg SL Q5M PRN PRN Reason: ANGINA Ondansetron HCl (Zofran Inj*) 4 mg IV Q6H PRN PRN Reason: NAUSEA Oxycodone/Acetaminophen (Percocet 5/325 Tab*) 1 tab PO Q6H PRN PRN Reason: PAIN Ticagrelor (Brilinta*) 90 mg PO BID [facility] Last Admin: 07/16/16 09:05 Dose: 90 mg Trazodone HCl (Desyrel Tab*) 25 mg PO BEDTIME [facility] Last Admin: 07/15/16 21:42 Dose: 25 mg Trazodone HCl (Desyrel Tab*) 25 mg PO BEDTIME PRN PRN Reason: INSOMNIA Last Admin: 07/15/16 21:45 Dose: 25 mg Zolpidem Tartrate (Ambien Tab*) 5 mg PO BEDTIME PRN PRN Reason: INSOMNIA Vital Signs 07/15/16 07/15/16 07/15/16 09:16 09:30 09:45 Temperature 98 F Pulse Rate 56 54 58 Respiratory 14 15 Rate Blood Pressure 117/71 98/75 109/75 (mmHg) O2 Sat by Pulse 98 99 98 Oximetry 07/15/16 07/15/16 07/15/16 10:26 10:30 10:45 Temperature 99.3 F Pulse Rate 58 58 Respiratory 16 13 Rate Blood Pressure 122/74 106/68 (mmHg) O2 Sat by Pulse 99 100 Oximetry 07/15/16 07/15/16 07/15/16 11:00 11:15 11:26 Temperature 98.6 F Pulse Rate 56 60 Respiratory 17 15 Rate Blood Pressure 100/68 105/63 (mmHg) O2 Sat by Pulse 98 98 Oximetry 07/16/16 07/16/16 07/16/16 07:22 07:51 08:00 Temperature Pulse Rate Respiratory 16 Rate Blood Pressure 95/63 97/55 (mmHg) O2 Sat by Pulse Oximetry Oxygen Devices in Use Now: None Appearance: Middle-aged, F, laying in bed in NAD Eyes: No Scleral Icterus Ears/Nose/Mouth/Throat: Mucous Membranes Moist Neck: NL Appearance and Movements; NL JVP Respiratory: Symmetrical Chest Expansion and Respiratory Effort, Clear to Auscultation Cardiovascular: NL Sounds; No Murmurs; No JVD, RRR Abdominal: NL Sounds; No Tenderness; No Distention Lymphatic: No Cervical Adenopathy Extremities: No Edema Skin: No Rash or Ulcers Neurological: Alert and Oriented x 3 Result Diagrams: 07/16/16 06:00 07/16/16 06:00 Microbiology and Other Data: Assess/Plan/Problems-Billing Assessment: Unstable angina in a 56 yo F with hx of anxiety, insomnia - Patient Problems (1) Unstable angina Current Visit: Yes Comment: CAD. Cath 07/15 showed 95% RCA stenosis now s/p KENY. Continue ASA, brilinta, lipitor. BPs on the low side, hold Toprol for now , recheck BPs (2) Depression Current Visit: Yes Comment: Continue home Prozac (3) DVT prophylaxis Current Visit: Yes Comment: Lovenox Status and Disposition: Likely discharge today
[2016-07-16] MEDS ORDERED: Enoxaparin(*) 40 MG/0.4 ML SYR SUBCUT SCH (10:00)
--- NOTE | 2016-07-16 10:33 | ECHO ---
Patient: JIM SNYDER [facility] Rec#: [id number] : 1960 Date: 07/16/2016 Age: 56y Height: 165.1 cm / 65.0 in Weight: 65.77 kg / 145.0 lbs Sex: F BSA: 1.73 Room#: [facility] Admit Date#: 07/14/2016 Type: Inpatient Referring: TRACEY DEL REAL MD Reading: Ramon Rm MD Avionics Repair Technician: Janet Vazquez [facility] Avionics Repair Technician: Mikaela Walker Transthoracic Echocardiogram Indication: CAD S/P stent BP: 97/55 HR: 62 Rhythm: NSR Findings History: CAD S/P PCI, Former smoker, anxiety. Technical Comments: The study is technically limited due to the patient's smoking history. Completed at 1037. Conclusions Limited study for low blodd pressures rule out mechanical cause. NO evidince for pericardial effusion. No significant valvular disease- trace to mild TR. trace MR. LV function shows improvement in proximal inferior wall. Virtually normal with [id number]%. Measurements Name Value Normal Range RVIDd (AP) 2D 2.6 cm (0.9 - 2.6) IVSd (2D) 1.15 cm (0.6 - 1) LVPWd (2D) 0.89 cm (0.6 - 1) LVIDd (2D) 3.95 cm (3.6 - 5.4) LVIDs (2D) 2.74 cm - LV FS (2D) 30.49 % (25 - 45) EF Teichholz (2D) 58.56 % - Ao root diameter (2D) 1.63 cm (2.1 - 3.5) Ascending Ao 2.54 cm (2.1 - 3.4) Aortic arch 2.4 cm (1.8 - 3.4) Name Value Normal Range LA ESV SP 4CH (A/L) 29.67 ml - LA ESV SP 2CH (A/L) 33.74 ml - LA ESV BP (A/L) 32.18 ml - LA ESV SP 4CH (MOD) 28.67 ml - LA ESV SP 2CH (MOD) 32.39 ml - Name Value Normal Range MV E-wave Vmax 0.8 m/sec - MV deceleration time 249 msec - MV A-wave Vmax 0.8 m/sec - MV E:A ratio 1 ratio - Name Value Normal Range AV Vmax 1.5 m/sec - AV VTI 35 cm - AV peak gradient 9.11 mmHg - AV mean gradient 4.74 mmHg - LVOT Vmax 1.3 m/sec - LVOT VTI 26 cm - LVOT peak gradient 6.6 mmHg - LVOT mean gradient 3.42 mmHg - LESLIE Vmax 0.8 m/sec - Name Value Normal Range TR Vmax 2.7 m/sec - TR peak gradient 29 mmHg - RAP 3 mmHg - RVSP 32 mmHg - IVC diameter 1.8 cm - Name Value Normal Range PV Vmax 1 m/sec - PV peak gradient 4.31 mmHg -
[2016-07-16] MEDS: Metoprolol Succinate XL TAB* 25 MG PO SCH (10:49)
[2016-07-16 14:20] VITALS: BP 93/63
[2016-07-16] MEDS ORDERED: FLUoxetine CAP* 20 MG PO SCH (21:00)
--- NOTE | 2016-07-17 07:54 | DS ---
DISCHARGE SUMMARY: DATE OF ADMISSION: 07/14/16 DATE OF DISCHARGE: 07/16/16 PRIMARY CARE PHYSICIAN: Dr. Gallagher. PRINCIPAL DISCHARGE DIAGNOSES: 1. Unstable angina. 2. Coronary artery disease, status post stent placement. SECONDARY DIAGNOSES: 1. Anxiety. 2. Depression. 3. Insomnia. DISCHARGE MEDICATION REGIMEN: 1. Trazodone 25 mg by mouth at bedtime as needed. 2. Ibuprofen 200 mg by mouth daily as needed for pain. 3. Vitamin D 2000 units by mouth daily. 4. Prozac 40 mg by mouth daily. 5. Brilinta 90 mg by mouth 2 times daily. 6. Toprol-XL 12.5 mg by mouth daily. 7. Atorvastatin 80 mg by mouth nightly. 8. Aspirin 81 mg by mouth daily. STUDIES DURING THE HOSPITALIZATION: Chest x-ray, impression: No radiographic evidence of acute cardio-pulmonary disease. Transthoracic echocardiogram, conclusions: Global left ventricular wall motion and contractility are within normal limits. The base of the inferior, posterior wall is relatively hypokinetic. Estimated ejection fraction is 55% to 60%. The right ventricular global systolic function is normal, wall thickness appears increased visually, although show good function. Has trace aortic regurgitation, trace tricuspid regurgitation. Nuclear stress test, impression: Incomplete examination showing inferoseptal defect. Repeat transthoracic echocardiogram, limited study, conclusions: No pericardial effusion. No significant valvular disease. LV function shows improvement in proximal inferior wall, virtually normal EF of 55% to 60%. CONSULTANTS DURING HOSPITALIZATION: Dr. Ramon Rm, Cardiology. HPI AND HOSPITAL SUMMARY: Please see the full history and physical by Dr. Alexey Valentino for full details. Briefly, Ms. Clarke is a 56-year-old female with the past medical history as above, who presented to the hospital with episodic epigastric pressure that was waxing and waning; however, it became more persistent. She came to the hospital and EKG was noted for minimal Q waves in the inferior leads. The patient was started on aspirin, beta yoana, heparin drip. Cardiology was consulted. The following morning when she was noted to have some wall motion abnormality, has had echo and during the resting part of her stress test. The patient was continued on heparin drip and was taken to the dental laboratory manager on 07/15/16. She was found to have 95% stenosis of the RCA and drug -eluting stent was placed. The patient was continued on aspirin and Plavix and heparin drip was stopped. Blood pressures remained somewhat soft during the hospitalization; however, not far off from the patient's baseline. She was discharged home with the above medication regimen. Will follow up with Dr. Rm and Dr. Gallagher as an outpatient. TIME SPENT: Total time spent on this discharge 40 minutes. This is a summary of hospitalization. Please see the full medical record for further details. CC: Dr. Gallagher * [id number]/[facility] #: [id number] MTDD
== END 2016-07-16 14:30 | disposition home or self-care (01) | DRG 175 ==
LOC: ED 22:14 → MEDTELE 07-14 03:44 → OBSVTOIN 07-14 14:23 → ICU 07-14 20:56
PROVIDERS: ADMIT Hospitalist; ATTEND Hospitalist
PROC: B2111ZZ Fluoroscopy of Multiple Coronary Arteries using Low Osmolar Contrast (ICD-10-PCS; principal; 2016-07-14)
PROC: B2151ZZ Fluoroscopy of Left Heart using Low Osmolar Contrast (ICD-10-PCS; 2016-07-14)
PROC: 4A023N7 Measurement of Cardiac Sampling and Pressure, Left Heart, Percutaneous Approach (ICD-10-PCS; 2016-07-14)
PROC: 027034Z Dilation of Coronary Artery, One Artery with Drug-eluting Intraluminal Device, Percutaneous Approach (ICD-10-PCS; 2016-07-14)
PROC: 3E03317 Introduction of Other Thrombolytic into Peripheral Vein, Percutaneous Approach (ICD-10-PCS; 2016-07-14)
DX: I25.110 Atherosclerotic heart disease of native coronary artery with unstable angina pectoris (principal); I08.2 Rheumatic disorders of both aortic and tricuspid valves; I10 Essential (primary) hypertension; E78.00 Pure hypercholesterolemia, unspecified; M81.0 Age-related osteoporosis without current pathological fracture; G89.29 Other chronic pain; F41.9 Anxiety disorder, unspecified; G47.00 Insomnia, unspecified; G44.40 Drug-induced headache, not elsewhere classified, not intractable; T46.3X5A Adverse effect of coronary vasodilators, initial encounter; F32.9 Major depressive disorder, single episode, unspecified; Z82.49 Family history of ischemic heart disease and other diseases of the circulatory system; Z87.891 Personal history of nicotine dependence; Z83.49 Family history of other endocrine, nutritional and metabolic diseases; Z79.02 Long term (current) use of antithrombotics/antiplatelets; Z79.82 Long term (current) use of aspirin
CPT/HCPCS: 36415; 71020; 78451; 80053; 80061; 83605; 83735; 83880; 84484; 84520; 85025; 85610; 85730; 87641; 93005; 93306; 93458; 99285; A9270-GY; A9502; C1725; C1760; C1769; C1876; C1887; C9600-RC; G0378; J1644; J2001; J2250; J2270; J3010